=== PATIENT | female | born 1980 | race Caucasian/White ===

== ENCOUNTER 2021-03-17 16:59 | Emergency (ER) | payer OTHER ==
[~2021-03-17 16:59] MED LIST: KEFLEX CAP 500500 MG PO; MOBIC15 MG PO
[2021-03-17] MEDS ORDERED: CEPHALEXIN500 MG PO (21:12)
== END 2021-03-17 21:20 | disposition home or self-care (01) ==
LOC: ER1 16:59
DX: L03.115 Cellulitis of right lower limb (principal); Z23 Encounter for immunization
CPT/HCPCS: 73630; 90471; 90715; 99283

== ENCOUNTER 2022-02-01 15:42 | Emergency (ER) | payer OTHER ==
[~2022-02-01 15:42] MED LIST changes: +CEPHALEXIN500 MG PO
[2022-02-01] MEDS ORDERED: HYDROCODON-ACE1 EAC4 PO (20:10)
== END 2022-02-01 20:55 | disposition home or self-care (01) ==
LOC: ER1 15:42
DX: S82.52XA Displaced fracture of medial malleolus of left tibia, initial encounter for closed fracture (principal); S82.432A Displaced oblique fracture of shaft of left fibula, initial encounter for closed fracture; F17.200 Nicotine dependence, unspecified, uncomplicated; Z88.1 Allergy status to other antibiotic agents; W17.2XXA Fall into hole, initial encounter; Y92.099 Unspecified place in other non-institutional residence as the place of occurrence of the external cause
CPT/HCPCS: 29515; 73610; 73630; 99283